=== PATIENT | female | born 1980 | race Caucasian/White ===

== ENCOUNTER 2017-06-12 20:42 | Emergency (ER) | payer MEDICAID, SELFPAY ==
[2017-06-12 20:42] VITALS: BP 140/90; PULSE 95; RESP 17; TEMP 36.1; O2SAT 97; BMI 45.0
[2017-06-12 21:26] LABS: Mucous, Urine 0 SEEN /hpf (<or=2+); Red Blood Cells-Urine 0 SEEN /hpf (0-5)
[2017-06-12 21:29] LABS: Color, Urine Yellow (Yellow); Glucose, Dipstick Normal (Normal); Ketone-Dipstick Negative (Negative); Leukocyte Esterase-Dipstick 25 /ul (Negative); Nitrite-Dipstick Negative (Negative); Occult Blood-Urine Negative /ul (Negative); Protein-Dipstick 15 mg/dl (Negative); Urine Bilirubin Dipstick Negative (Negative); Urine Clarity Clear (Clear); Urine Urobilinogen Normal (Normal)
[2017-06-12 22:02] LABS: Bacteria RARE /hpf (None Seen); Calcium Oxalate Crystals Ur 1+ /hpf (<or=2+); Squamous Epithelial Cells - UA 0-5 SEEN /hpf (5-10); White Blood Cells 0-5 SEEN /hpf (0-5)
--- NOTE | 2017-06-13 00:20 | CT_ITS ---
STUDY: CT ABDOMEN AND PELVIS WITHOUT CONTRAST REASON FOR EXAM: Female, 36 years old. Right flank pain. History of kidney stones. RADIATION DOSAGE (If Supplied By Facility): CTDIvol = ( 22.30 ) mGy, DLP = ( 1147.49 ) mGycm TECHNIQUE: Transaxial images were obtained from the dome of the diaphragm to the symphysis pubis without oral contrast, and without intravenous contrast. Sagittal and coronal images were reconstructed. Individualized dose optimization techniques were used for this CT. COMPARISON: January 21, 2009. FINDINGS: The visualized lung bases are unremarkable. The visualized portions of the heart are within normal limits. Normal liver. There are surgical clips in the gallbladder fossa consistent with a prior cholecystectomy. Normal spleen. Normal pancreas. Normal bilateral adrenal glands. Scattered 1 to 2 mm nonobstructing right renal calculi. Normal left kidney. Normal visualized stomach. Normal small intestine. Normal colon. The appendix is well visualized anterior aspect of the right lower quadrant coronal image 43, axial image 119 and sagittal image 67 and appears normal. Normal abdominal aorta. Normal inferior vena cava. Normal retroperitoneum. Normal urinary bladder. Uterus grossly normal. 2.7 cm left ovarian cyst compatible with a physiologic cyst. Normal abdominal wall. Normal osseous structures. CT/Abdomen/Pelvis without Cont IMPRESSION: Small nonobstructing right renal calculi. No hydronephrosis or obstructing ureteral stones. Normal appendix. Left ovarian cyst. Electronically Signed: Solo Martinez MD at 1:54 EDT , Service support ,
--- NOTE | 2017-06-13 00:20 | RAD_ITS ---
STUDY: X-RAY - LEFT WRIST REASON FOR EXAM: Female, 36 years old. Wrist pain. No history of trauma. TECHNIQUE: 3 view(s) of the wrist were obtained. COMPARISON: None. FINDINGS: Normal visualized distal radius and ulna. Normal radiocarpal articulation. Normal distal radioulnar articulation. Normal carpal bones. Normal carpal articulations. Normal carpometacarpal articulation of the thumb. Normal second through fifth carpometacarpal articulations. Normal visualized metacarpal bones. The soft tissue structures are unremarkable. RAD/Wrist min 3 Views IMPRESSION: Normal x-ray examination of the wrist. Electronically Signed: Solo Martinez MD at 1:28 EDT , Service support ,
--- NOTE | 2017-06-13 00:22 | ED.DCSUM_ITS ---
- ER Visit Summary Date of Service: 06/13/17 Chief Complaint: Right flank pain History of Present Illness: The patient is a 36 F transient right flank pain this afternoon. No radicular symptoms. States reminds her of kidney stones in the past. No urinary symptoms. No nausea or vomiting. No fevers. Also concerned after pushing herself up off the ground from praying she felt pain in her wrist. Worse with forced extension of the wrist. There is no direct falls. She is right-hand dominant. No paresthesias. Currently denies any symptoms. Physical Examination: General: Alert and oriented ?3, no acute distress HEENT: Normocephalic, atraumatic. Moist mucosa membranes Neck: supple, nontender. Cardiovascular: Regular rate and rhythm, no murmurs Respiratory: Normal breath sounds, symmetric, no distress Back: No CVA tenderness. No rash appears mild para right lumbar tenderness. Straight leg test was negative bilaterally. 2+ patellar reflexes. Abdomen: Soft, nontender, nondistended Extremities: Nontender, no edema, pulses intact ?4 Neuro: no focal neurological deficits. Test Results: UA: 25 leukocytes. Left wrist x-ray: No acute process. CT abdomen pelvis: Renal stone with no obstructive uropathy. Left ovarian cyst. Emergency Department Course and Treatment: Patient nontoxic, currently asymptomatic. Exam concerns for tendinitis forearm muscles distally. No direct falls. X-ray for reassurance was negative. Wrist splint provided. CT scan due to patient request, risks were discussed with radiation. No obstructive uropathy noted. Discussed with patient using Tylenol or Motrin as needed. Monitoring symptoms. No urine symptoms. Discussed with patient follow -up as an outpatient. Return if any worsening symptoms. Treatment Plan: [] Disposition: Discharged Impression: 1. Left wrist sprain 2. Right flank pain This note was generated with [employer] software. It may contain incorrect words, spelling, and punctuation that were not noted in review of the chart prior to signing ED Disposition - Plan for ED Patient: Disposition: Home or Assisted Living Chief Complaint: Flank Pain Diagnosis: Right flank pain, Left wrist sprain Instructions: ED Flank Pain Uncertain Cause, ED Sprain Wrist Referrals: Reymundo Lyman MD [Primary Care Provider] - 5-7 Days
[2017-06-13 01:02] VITALS: BP 117/67; PULSE 67; RESP 16; O2SAT 98
[2017-06-13 02:37] VITALS: BP 154/95; PULSE 68; RESP 16; O2SAT 98
== END 2017-06-13 02:37 | disposition home or self-care (01) ==
PROVIDERS: Emergency Provider Emergency Medicine; Family Provider Internal Medicine; PCP Internal Medicine
DX: R10.9 Unspecified abdominal pain (principal); S63.501A Unspecified sprain of right wrist, initial encounter; X50.9XXA Other and unspecified overexertion or strenuous movements or postures, initial encounter; Y93.89 Activity, other specified; Y92.9 Unspecified place or not applicable; Y99.9 Unspecified external cause status; N20.0 Calculus of kidney; E28.2 Polycystic ovarian syndrome; Z72.0 Tobacco use; Z79.84 Long term (current) use of oral hypoglycemic drugs; Z79.899 Other long term (current) drug therapy; Z87.442 Personal history of urinary calculi
CPT/HCPCS: 73110; 74176; 81001; 99283

== ENCOUNTER 2017-11-22 01:35 | Emergency (ER) | payer MEDICAID, SELFPAY ==
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
== END 2017-11-22 03:09 | disposition home or self-care (01) ==
LOC: ED 02:51
PROVIDERS: Emergency Provider Emergency Medicine; Family Provider Internal Medicine; PCP Internal Medicine
DX: S16.1XXA Strain of muscle, fascia and tendon at neck level, initial encounter (principal); V49.40XA Driver injured in collision with unspecified motor vehicles in traffic accident, initial encounter; Y93.9 Activity, unspecified; Y92.9 Unspecified place or not applicable; Y99.9 Unspecified external cause status; R51 Headache; E28.2 Polycystic ovarian syndrome; F32.9 Major depressive disorder, single episode, unspecified; E66.9 Obesity, unspecified; Z72.0 Tobacco use; Z79.899 Other long term (current) drug therapy
CPT/HCPCS: 99283

== ENCOUNTER 2018-06-29 10:39 | Emergency (ER) | payer MEDICAID, SELFPAY ==
[2018-06-29 10:41] VITALS: BP 105/76; PULSE 86; RESP 17; TEMP 36.4; O2SAT 97; BMI 47.3
--- NOTE | 2018-06-29 10:58 | ED.DCSUM_ITS ---
- ER Visit Summary Date of Service: 06/29/18 Chief Complaint: Back pain History of Present Illness: The patient is a 37 F who pulled her back getting out of the bathtub last night. She had some old Flexeril left over from approximately 8 years ago that she tried without improvement. Pain radiates down into the anterior left thigh. She denies paresthesia or weakness. She states she has had previous problems where her whole leg will go numb and give out on her. Physical Examination: Vital signs unremarkable. Patient sitting upright in bed no acute distress. Heart is regular rate and rhythm. Lung sounds are clear. Abdomen is soft and nontender. Back examination reveals no midline thoracic or lumbar tenderness. She has reproducible tenderness in the left lateral paraspinal muscles over the lumbar region. No overlying skin change. Lower extremity examination reveals good strength and sensation with strong distal pulses. She has 1+ bilateral patellar reflexes. Straight leg raise in the supine position is negative. Test Results: [] Emergency Department Course and Treatment: Patient be treated with naproxen and Flexeril, first doses given here. She is given a work note for today. Treatment Plan: [] Disposition: Discharge Impression: Lumbar back strain This note was generated with [employer] dictation software. It may contain incorrect words, spelling, and punctuation that were not noted in review of the chart prior to signing ED Disposition - Plan for ED Patient: Referrals: Reymundo Lyman MD [Primary Care Provider] -
--- NOTE | 2018-06-29 10:58 | ED.DEP ---
ED Disposition - Plan for ED Patient: Disposition: Home or Assisted Living Instructions: ED Neck Back Pain General Prescriptions: Naproxen [Naprosyn] 500 mg PO BID PRN PRN #20 tablet PRN Reason: Pain Cyclobenzaprine [Flexeril] 10 mg PO TID PRN #20 tablet PRN Reason: Muscle Spasm Referrals: Reymundo Lyman MD [Primary Care Provider] - 1 Week if not improving
[2018-06-29] MEDS: Naproxen 500 MG Tablet PO (11:09)
== END 2018-06-29 11:13 | disposition home or self-care (01) ==
LOC: ED 11:09
PROVIDERS: Emergency Provider Emergency Medicine; Family Provider Internal Medicine; PCP Internal Medicine
DX: S39.012A Strain of muscle, fascia and tendon of lower back, initial encounter (principal); X50.9XXA Other and unspecified overexertion or strenuous movements or postures, initial encounter; Y93.E1 Activity, personal bathing and showering; Y92.002 Bathroom of unspecified non-institutional (private) residence as the place of occurrence of the external cause; Y99.9 Unspecified external cause status; F31.9 Bipolar disorder, unspecified; F41.9 Anxiety disorder, unspecified; Z72.0 Tobacco use
CPT/HCPCS: 99283

== ENCOUNTER 2018-11-08 21:18 | Emergency (ER) | payer MEDICAID, SELFPAY ==
[2018-11-08 21:20] VITALS: BP 136/95; PULSE 90; RESP 18; TEMP 36.3; O2SAT 96; BMI 49.7
--- NOTE | 2018-11-08 21:40 | US_ITS ---
STUDY: ULTRASOUND OF THE FEMALE PELVIS - COMPLETE REASON FOR EXAM: Female, 37 years old. Right lower quadrant pain LMP: August 15, 2018 TECHNIQUE: Transabdominal and endovaginal TECHNICAL QUALITY: Adequate. COMPARISON: None. FINDINGS: The uterus is anteverted and is in a midline position. The uterus measures 8.9 x 6.2 x 5.4 cm. Nabothian cysts at the uterine cervix. Trace cervical fluid. The endometrium measures 8 mm in thickness, and is hyperechoic. There is no demonstrated endometrial mass. There is no demonstrated myometrial mass. The patient does not have an I.U.D. The right ovary is visualized. The right ovary measures 2.6 x 2.4 x 1.7 cm. There is no right ovarian cyst or ovarian mass. There is a 1.2 cm cyst. There is normal arterial and normal venous vascularity. The left ovary is visualized. The left ovary measures 3.3 x 2.5 x 1.5 cm. There is no left ovarian cyst or ovarian mass. There is no visualized left adnexal mass or complex lesion. There is normal arterial and normal venous vascularity. There is no fluid in the cul-de-sac. US/Transvaginal Non- IMPRESSION: Right ovarian cyst. Nabothian cysts. Trace cervical fluid. Electronically Signed: Ryan Marr DO at 23:07 EDT Tel [phone], Service support ,
[2018-11-08 22:27] LABS: Mucous, Urine 0 SEEN /hpf (<or=2+); White Blood Cells 0 SEEN /hpf (0-5)
[2018-11-08 22:31] LABS: Color, Urine Yellow (Yellow); Glucose, Dipstick Normal (Normal); Ketone-Dipstick Negative (Negative); Leukocyte Esterase-Dipstick Negative /ul (Negative); Nitrite-Dipstick Negative (Negative); Occult Blood-Urine Negative /ul (Negative); Protein-Dipstick Negative (Negative); Specific Gravity, Urine 1.025 (1.002-1.030); Urine Bilirubin Dipstick Negative (Negative); Urine Clarity Clear (Clear); Urine Urobilinogen Normal (Normal)
[2018-11-08 22:32] LABS: Internal QC Validated? YES +Cl - CLEAR BKGD; Pregnancy, Urine Negative Negative
[2018-11-08 22:36] LABS: Bacteria RARE /hpf (None Seen); Red Blood Cells-Urine 0-5 SEEN /hpf (0-5); Squamous Epithelial Cells - UA 0-5 SEEN /hpf (5-10)
--- NOTE | 2018-11-08 23:17 | ED.DCSUM_ITS ---
- ER Visit Summary Date of Service: 11/08/18 Chief Complaint: Pain with a history of brain cyst History of Present Illness: The patient is a 37 F history of polycystic ovarian syndrome. G2, P1 AB 1 with that being a miscarriage. Prior kidney stone. Patient states that she has had lower abdominal discomfort was gradual in onset today. Denies any nausea, vomiting or diarrhea. No melena. No dysuria. Says she has not had a menstrual period for 4 months but states that is not uncommon for her. States she took a test today that was negative. She denies any vaginal bleeding or discharge. No fever. No weight change. She has had a prior cholecystectomy and laparoscopy. Physical Examination: Well-appearing middle-aged female. Vital signs are stable afebrile. HEENT exam unremarkable. Neck nontender no lymphadenopathy. Lungs clear to auscultation bilaterally. Heart regular rhythm no murmur. Abdomen is soft. Nondistended normal bowel sounds no peritoneal signs. Both the right upper and right lower quadrant specifically marked McBurney's point are nonten alia. There is no Shaver sign. She has tenderness in the right lower quadrant but it is low and medial below and medial to McBurney's point. The left side of the abdomen is nontender. No hernias or masses. Nondistended no signs of obstruction. Patient is moving all 4 extremities. Back is nontender. Neurologically she is awake alert. Test Results: Urinalysis is normal. No signs of infection. Urine test negative. Patient requested an ultrasound be done. Pelvic ultrasound was done which shows a small 1.2 cm right ovarian cyst. Otherwise unremarkable with normal ovarian flow. Emergency Department Course and Treatment: Repeat exam patient is doing well at 2318. Abdomen is benign. We discussed all of her test results. Treatment Plan: Tylenol Motrin for pain. Follow-up with her CHARGE HISTOTECHNOLOGIST as needed. Disposition: Discharge Impression: Pelvic pain with a right ovarian cyst of 1.2 cm. This note was generated with [employer] dictation software. It may contain incorrect words, spelling, and punctuation that were not noted in review of the chart prior to signing ED Disposition - Plan for ED Patient: Referrals: Reymundo Lyman MD [Primary Care Provider] -
--- NOTE | 2018-11-08 23:20 | ED.DEP ---
ED Disposition - Plan for ED Patient: Disposition: Home or Assisted Living Instructions: PELVIC PAIN, Unknown Cause Referrals: Reymundo Lyman MD [Primary Care Provider] - As Needed Additional Instructions: Follow-up with your CERTIFIED OPHTHALMIC MEDICAL TECHNICIAN doctor as needed. Your ultrasound showed a small 1.2 cm cyst on your right ovary. That is not very large and may or may not be causing her discomfort. Tylenol and Motrin for pain.
== END 2018-11-08 23:26 | disposition home or self-care (01) ==
PROVIDERS: Emergency Provider Emergency Medicine; Family Provider Internal Medicine; PCP Internal Medicine
DX: N83.201 Unspecified ovarian cyst, right side (principal); R10.2 Pelvic and perineal pain; E28.2 Polycystic ovarian syndrome; Z87.442 Personal history of urinary calculi; Z90.49 Acquired absence of other specified parts of digestive tract; Z72.0 Tobacco use
CPT/HCPCS: 76830; 81001; 81025; 93976; 99282

== ENCOUNTER → 2019-02-25 12:57 | Outpatient (CLI) | payer MEDICAID, SELFPAY ==
--- NOTE | 2019-02-25 13:02 | CT_ITS ---
STUDY: CT MAXILLOFACIAL SINUSES REASON FOR EXAM: Female, 38 years old. Sinusitis RADIATION DOSAGE (If Supplied By Facility): CTDIvol = ( 33.06 ) mGy, DLP = ( 796.66 ) mGycm TECHNIQUE: The patient was scanned in a multi detector CT scanner. High resolution axial imaging was performed without the administration of intravenous contrast material. Sagittal and coronal images were reconstructed. Individualized dose optimization techniques were used for this CT. COMPARISON: None. FINDINGS: FRONTAL SINUSES: Normal aeration, without mucosal inflammatory disease. ETHMOIDAL SINUSES: Normal aeration, without mucosal inflammatory disease. MAXILLARY SINUSES: Normal aeration, without mucosal inflammatory disease. SPHENOIDAL SINUSES: Normal aeration, without mucosal inflammatory disease. There is patency of the bilateral maxillary infundibuli with normal uncinate processes, ethmoid bullae, and hiatus semilunaris. Normal bilateral middle turbinates. Normal bilateral inferior turbinates. Normal midline nasal septum. There is patency of the bilateral nasal airways. The visualized osseous structures are normal. The visualized bilateral orbital contents are normal. CT/Sinus/Facial Bone IMPRESSION: Normal CT examination of the maxillofacial sinuses. Electronically Signed: Steven Wall MD ([place]) at 15:49 EST , Service support ,
[2019-02-25 16:03] LABS: Carboxyhemoglobin Frac (CO) 7.1 % (0.0-1.5)
== END ==
PROVIDERS: Family Provider Internal Medicine; PCP Internal Medicine; Referring Provider Internal Medicine Hematology & Oncology; Visit Provider Internal Medicine Hematology & Oncology
DX: J32.9 Chronic sinusitis, unspecified (principal); F17.200 Nicotine dependence, unspecified, uncomplicated
CPT/HCPCS: 36415; 70486; 82375

== ENCOUNTER 2019-10-19 15:24 | Emergency (ER) | payer MEDICAID, SELFPAY ==
[2019-10-19 15:26] VITALS: BP 145/92; PULSE 84; RESP 18; TEMP 37.1; O2SAT 96; BMI 50.3
[2019-10-19 15:29] VITALS: BMI 50.3
[2019-10-19 15:36] LABS: Bedside Glucose 83 mg/dL (70-110)
--- NOTE | 2019-10-19 15:49 | EKG12_ITS ---
Test Reason : CP Blood Pressure : / mmHG Vent. Rate : 078 BPM Atrial Rate : 078 BPM P-R Int : 132 ms QRS Dur : 076 ms QT Int : 380 ms P-R-T Axes : 048 020 037 degrees QTc Int : 433 ms Normal sinus rhythm Normal ECG Confirmed by MIRLANDE LEON, DARBY ([id number]), city editor NETO UMANZOR ([id number]) on 10/22/2019 9:26:24 AM Referred By: MALIHA Confirmed By:DARBY NOGUEIRA MD
--- NOTE | 2019-10-19 15:52 | ED.DCSUM_ITS ---
History of Present Illness Chief Complaint: Numb/Ting Informant: Patient Onset: Days - 2 days Context: Gradual Onset Timing: Waxes and wanes Current Severity: Mild Maximum Severity: Moderate Narrative: Patient presents with intermittent paresthesias to the left side of her body. She describes a tingling sensation that will appear mostly in her face and hand. A couple of times is gone down into the abdomen. She denies any loss of strength. She states overall she just feels very tired and was asleep all the time. She has had some hot sweats and cold sweats last night. She states she feels nauseated but has not had any vomiting. She will has not had much interest in food. She is concerned that her potassium may be low as she has had problems with this in the past. She had blood work done through her PCPs office earlier this week that showed her potassium to be at the lower level of normal. - Past Medical History (1) High cholesterol Status: Chronic (2) Asthma Status: Chronic (3) PCOS (polycystic ovarian syndrome) Status: Chronic (4) Anxiety and depression Status: Chronic (5) Kidney stone Status: Chronic (6) Hx of cholecystectomy Status: Chronic Past Medical History - Allergies and Home Meds Allergies/Adverse Reactions: Allergies No Known Allergies Allergy (Verified 10/19/19 15:26) Primary Care Physician: Estela Aguiar MD [Primary Care Provider] - Prior records reviewed: Yes Lives: Spouse/ Significant Other Smoking Status: Current every day smoker Review of Systems General: Reports: Sweats Eyes: Denies: Visual changes - bilaterally ENT: Denies: Bilateral ear pain Cardiovascular: Denies: Chest pain Respiratory: Denies: Dyspnea, Cough Gastrointestinal: Reports: Nausea. Denies: Abdominal pain, Vomiting Genitourinary: Denies: Dysuria Musculoskeletal: Denies: Swelling, Extremity Pain Skin: Denies: Rash Neurological: Reports: Weakness - Generalized weakness, but no focal weakness in the extremities., Parasthesia Hematologic: Denies: Easy bruising, Easy bleeding Allergy: Denies: Uticaria Physical Exam Vital Signs/Narrative: Vital Signs Temp Pulse Resp BP Pulse Ox 10/19/19 15:26 98.7 F 84 18 145/92 H 96 Inital Vital Signs reviewed: Yes General: Well nourished, Well developed Head: Normocephalic ENT: Moist mucous membranes Neck: Supple Cardiovascular: Regular rate, Regular rhythm Respiratory: No distress, CTA bilaterally Abdomen: Soft, Nontender, Hypoactive bowel sounds Extremities: Nontender Skin: Normal color, No rash Neurological: Alert, Oriented x3, Normal Strength, Normal Sensation, - - Normal strength and sensation throughout on testing at this time. NIH equals 0. Psychological: Normal affect Diagnostic/Tx/Re-eval Impressions Head/Neck CTA 10/19/19 16:26 IMPRESSION: Normal CTA Head and neck with contrast. Electronically Signed: Yarely Claudettebridgette, at 17:26 EDT Tel , Service support , 10/19/19 16:26 CTA Head AND Neck W/ Contrast [CT] Stat Laboratory Results 10/19/19 10/19/19 10/19/19 15:30 15:39 15:39 WBC 9.4 RBC 5.52 H Hgb 16.4 H Hct 49.2 H MCV 89.1 MCH 29.7 MCHC 33.3 RDW Std Deviation 41.8 RDW Coeff of Gifty 13.0 Plt Count 311 MPV 9.7 Immature Gran % (Auto) 0.200 Neut % (Auto) 50.3 Lymph % (Auto) 39.4 [place] % (Auto) 7.2 Eos % (Auto) 2.4 Baso % (Auto) 0.5 Absolute Neuts (auto) 4.7 Absolute Lymphs (auto) 3.68 Nucleated RBC % 0 Sodium 137 Potassium 3.6 Chloride 107 Carbon Dioxide 24.0 Anion Gap 6 BUN 17 Creatinine 0.84 Estim Creat Clear Calc 70.41 Est GFR (MDRD) Af Amer 96 Est GFR (MDRD) Non-Af 80 BUN/Creatinine Ratio 20.3 H Glucose 96 Calcium 9.1 Total Bilirubin 0.40 AST 11 L ALT 28 Alkaline Phosphatase 64 Troponin I < 0.015 Total Protein 7.5 Albumin 4.0 Globulin 3.5 Albumin/Globulin Ratio 1.1 Serum , Qual Urine Color Urine Clarity Urine pH Ur Specific [place] Urine Protein Urine Glucose (UA) Urine Ketones Urine Occult Blood Urine Nitrite Urine Bilirubin Urine Urobilinogen Ur Leukocyte Esterase Urine RBC Urine WBC Ur Squamous Epith Cells Urine Bacteria Urine Mucus POC Glucose 83 07/18/20 07/18/20 15:39 16:10 WBC RBC Hgb Hct MCV MCH MCHC RDW Std Deviation RDW Coeff of Gifty Plt Count MPV Immature Gran % (Auto) Neut % (Auto) Lymph % (Auto) [place] % (Auto) Eos % (Auto) Baso % (Auto) Absolute Neuts (auto) Absolute Lymphs (auto) Nucleated RBC % Sodium Potassium Chloride Carbon Dioxide Anion Gap BUN Creatinine Estim Creat Clear Calc Est GFR (MDRD) Af Amer Est GFR (MDRD) Non-Af BUN/Creatinine Ratio Glucose Calcium Total Bilirubin AST ALT Alkaline Phosphatase Troponin I Total Protein Albumin Globulin Albumin/Globulin Ratio Serum , Qual NEGATIVE Urine Color Yellow Urine Clarity Clear Urine pH 6.0 Ur Specific [place] 1.010 Urine Protein Negative Urine Glucose (UA) Normal Urine Ketones Negative Urine Occult Blood Negative Urine Nitrite Negative Urine Bilirubin Negative Urine Urobilinogen Normal Ur Leukocyte Esterase Negative Urine RBC 0 SEEN Urine WBC 0 SEEN Ur Squamous Epith Cells 0 SEEN Urine Bacteria 0 SEEN Urine Mucus 0 SEEN POC Glucose - EKG Initial EKG Interpretation: Sinus Rhythm - Sinus at 78 with no acute ischemia. - Medical Decision Making Blood work was reviewed with the patient. Potassium level is within normal limits and not low enough to cause the symptoms that she is having. CT of the head and neck is obtained and unremarkable. I did discuss with her that I cannot completely rule out TIA and recommended hospitalization for further evaluation. At this time she is declining. Pros and cons of staying in the hospital were discussed with her and significant other at bedside. At this time she understands the risks and is declining admission. She was encouraged to return immediately if her symptoms recur. She will contact her doctor on Monday to arrange an outpatient head MRI. ED Disposition - Plan for ED Patient: Disposition: Home or Assisted Living Diagnosis: Paresthesias Instructions: ED Paraesthesias Referrals: Estela Aguiar MD [Primary Care Provider] - As soon as possible
[2019-10-19 15:56] LABS: Absolute Lymphocyte Count 3.68 X10^3/uL (0.83-4.51); Absolute Neutrophil Count 4.7 X10^3/uL (2.0-7.7); Basophil# 0.05 X10^3/uL; Basophil% 0.5 % (0-1); Eosinophil# 0.22 X10^3/uL; Eosinophils% 2.4 % (0-5); Hematocrit 49.2 % (37-47); Hemoglobin 16.4 g/dL (12.0-15.0); Lymphocyte # 3.68 X10^3/ul (4.0); Lymphocyte % 39.4 % (19-41); Mean Corp Hgb Conc 33.3 g/dL (32-36); Mean Corpuscular Hgb 29.7 pg (27.0-32.0); Mean Corpuscular Volume 89.1 fL (81-99); Mean Platelet Vol. 9.7 fl (6.2-12.0); Monocyte# 0.67 X10^3/uL; Monocyte% 7.2 % (0-10); NRBC Flagged by Analyzer 0 % (0-5); Neutrophil # 4.71 X10^3/uL (2.7-7.7); Neutrophil % 50.3 % (47-70); Platelet Count 311 K/mm3 (150-450); RBC Distribution Width SD 41.8 fl (35.1-43.9); Red Blood Count 5.52 M/mm3 (4.2-5.4); White Blood Count 9.4 K/mm3 (4.4-11.0)
[2019-10-19 16:02] LABS: Internal QC Validated? YES +Cl - CLEAR BKGD; Pregnancy, Serum, hCG Quali. NEGATIVE Negative
[2019-10-19 16:13] LABS: ALB/GLOB Ratio 1.1 RATIO (0.9-2.4); AST(SGOT) 11 U/L (15-37); Alanine Aminotransfer ALT/SGPT 28 U/L (13-56); Alkaline Phosphatase 64 U/L (45-117); Anion Gap 6 (5-15); BUN 17 mg/dL (7-18); BUN/Creat Ratio 20.3 RATIO (10-20); Calcium,Total 9.1 mg/dL (8.5-10.1); Chloride 107 mmol/L (98-107); Creatinine, Serum 0.84 mg/dL (0.55-1.02); EST Glomerular Filtration Rate 80 mL/min (>60); Est Glom Filt Rate - Afr Amer 96 mL/min (>60); Estimated Creatinine Clearance 70.41 ml/min; Globulin 3.5 g/dL (2.2-4.2); Glucose 96 mg/dL (74-106); Potassium 3.6 mmol/L (3.5-5.1); Protein, Total 7.5 g/dL (6.4-8.2); Sodium Level 137 mmol/L (136-145)
[2019-10-19] MEDS: 0.9% Normal Saline 1,000 ML 150 ML IV (16:20)
[2019-10-19 16:22] LABS: Bacteria 0 SEEN /hpf (None Seen); Mucous, Urine 0 SEEN /hpf (<or=2+); Red Blood Cells-Urine 0 SEEN /hpf (0-5); Squamous Epithelial Cells - UA 0 SEEN /hpf (5-10); White Blood Cells 0 SEEN /hpf (0-5)
[2019-10-19 16:24] LABS: Color, Urine Yellow (Yellow); Glucose, Dipstick Normal (Normal); Ketone-Dipstick Negative (Negative); Leukocyte Esterase-Dipstick Negative /ul (Negative); Nitrite-Dipstick Negative (Negative); Occult Blood-Urine Negative /ul (Negative); Protein-Dipstick Negative (Negative); Urine Bilirubin Dipstick Negative (Negative); Urine Clarity Clear (Clear); Urine Urobilinogen Normal (Normal)
--- NOTE | 2019-10-19 16:26 | CT_ITS ---
STUDY: CTA HEAD AND NECK WITH CONTRAST REASON FOR EXAM: Female, 38 years old. N/T ENTIRE LT SIDE OF BODY X 2 DAYS, and quot;FUNNY FEELING and quot; IN CHEST, HLD, ASTHMA RADIATION DOSAGE (If Supplied By Facility): CTDIvol = ( 27.77 ) mGy, DLP = ( 1507.39 ) mGycm TECHNIQUE: CT angiography was performed with a multi-detector CT scanner. Data acquisition was obtained from the skull base through the vertex following intravenous administration of [id number]. MIP images were reconstructed from the axial data set. Post-processing of the angiographic images was performed, with multiplanar reformation and 3D reconstruction. Individualized dose optimization techniques were used for this CT. COMPARISON: No relevant priors. FINDINGS: Normal bilateral petrous carotid arteries. Normal right cavernous carotid artery with a normal supraclinoid bifurcation. Normal left cavernous carotid artery with a normal supraclinoid bifurcation. Normal right A1 segments of the anterior cerebral artery. Normal left A1 segments of the anterior cerebral artery. Normal intact anterior communicating artery (ACOM). Normal bilateral A2 segments of the anterior cerebral arteries. Normal right M1 and M2 segments of the middle cerebral arteries, with a normal M1 bifurcation. Normal left M1 and M2 segments of the middle cerebral arteries, with a normal M1 bifurcation. Normal right posterior communicating artery (PCOM). Normal left posterior communicating artery (PCOM). Normal bilateral vertebral arteries. Normal basilar artery with a normal basilar bifurcation. The visualized bilateral superior cerebellar (SCA) arteries are normal. Normal bilateral P1, P2 and visualized P3 segments of the posterior cerebral arteries. There is no demonstrated aneurysm of the cahto of [place]. There is no demonstrated abnormality of the visualized brain. AORTIC ARCH: Normal visualized aortic arch. Normal origins of the brachiocephalic, left common carotid, and left subclavian arteries. RIGHT CAROTID ARTERIES: Normal right common carotid artery (CCA). Normal right common carotid bulb. Normal origin of the right internal carotid (ICA) artery without a hemodynamically significant stenosis. Normal visualized cervical portion of the right internal carotid artery. Normal origin of the right external carotid artery (ECA). LEFT CAROTID ARTERIES: Normal left common carotid artery (CCA). Normal left common carotid bulb. Normal origin of the left internal carotid (ICA) artery without a hemodynamically significant stenosis. Normal visualized cervical portion of the left internal carotid artery. Normal origin of the left external carotid artery (ECA). VERTEBRAL ARTERIES: Normal bilateral vertebral arteries. CT/CTA Head AND Neck W/ Contrast IMPRESSION: Normal CTA Head and neck with contrast. Electronically Signed: Yarely Fraser, at 17:26 EDT Tel , Service support ,
[2019-10-19 17:33] VITALS: BP 141/85; PULSE 66; RESP 20; O2SAT 98
[2019-10-19 19:16] VITALS: RESP 16
[2019-10-19 19:43] VITALS: BP 126/80; PULSE 60; RESP 16; O2SAT 98
--- NOTE | 2019-10-19 19:43 | ED.RN ---
REVIEWED D/C INSTRUCTIONS, FOLLOW UP CARE, AND S/S THAT WOULD WARRANT A RETURN TO THE ED WITH PT. PT VERBALIZED AN UNDERSTANDING AND DENIES FURTHER QUESTIONS FOR THIS RN. PT SKIN P/W/D, RESP EVEN AND UNLABORED, PT A&O X 3, NO DISTRESS NOTED. PT AMBULATED OUT OF ED, GAIT STEADY.
== END 2019-10-19 19:44 | disposition home or self-care (01) ==
PROVIDERS: Emergency Provider Emergency Medicine; PCP Family Medicine Sports Medicine
DX: R20.2 Paresthesia of skin (principal); R20.0 Anesthesia of skin; R11.0 Nausea; E78.00 Pure hypercholesterolemia, unspecified; J45.909 Unspecified asthma, uncomplicated; E28.2 Polycystic ovarian syndrome; F32.9 Major depressive disorder, single episode, unspecified; F41.9 Anxiety disorder, unspecified; F17.200 Nicotine dependence, unspecified, uncomplicated; Z87.442 Personal history of urinary calculi; Z79.899 Other long term (current) drug therapy
CPT/HCPCS: 70496; 70498; 80053; 81001; 82962; 84484; 84703; 85025; 93005; 96360; 96361; 99285; J7030; Q9967; A4216